=== PATIENT | male | born 1980 | race Caucasian/White ===

== ENCOUNTER 2020-10-15 23:33 | Emergency (ER) | payer OTHER ==
[~2020-10-15] VITALS: Ht 180.3 cm; Wt 117.9 kg
--- NOTE | 2020-10-15 23:42 | NUR ---
pt BIB [facility] 87 from home c/o back pain PL:01/06. No SOB or labored breathing. Afebrile. Denies any CP/pressure. No GI/ distress. pt states he was walking his dog and his back "locked up", pt dropped to the floor and simultaneously injured his ankles. A/O x4.
--- NOTE | 2020-10-16 | NUR ---
Dr. Smith at [facility], [facility] [place] in progress.
[2020-10-16] MEDS ORDERED: CARI350T PO (00:01)
[2020-10-16] MEDS ORDERED: VENL75TA4 PO (00:01)
[2020-10-16] MEDS ORDERED: HYDR-3972 PO (00:01)
[2020-10-16] MEDS ORDERED: KLONOPIN PO (00:01)
[2020-10-16] MEDS ORDERED: HYDROMORPHONE 1 MG/1 ML DISP.SYRIN IM ONE (00:15)
[2020-10-16] MEDS ORDERED: ONDANSETRON 4 MG/2 ML VIAL IM ONE (00:15)
[2020-10-16] MEDS ORDERED: ONDANSETRON 4 MG/2 ML VIAL ONE (00:21)
[2020-10-16] MEDS ORDERED: HYDROMORPHONE 2 MG/1 ML DISP.SYRIN ONE (00:21)
--- NOTE | 2020-10-16 01:32 | NUR ---
Patient discharged to home in stable condition. A/O x4, denies any fuller/discomfort at this time. Written and verbal after care instructions given. Patient verbalizes understanding of instructions. Stressed follow up or return to ER for worsening s/s. Steady gait, picked up by .
[2020-10-16 01:33] VITALS: BP 131/77
== END 2020-10-16 01:34 | disposition home or self-care (01) ==
LOC: ER 23:34
DX: M54.9 Dorsalgia, unspecified (principal); M25.571 Pain in right ankle and joints of right foot; W01.0XXA Fall on same level from slipping, tripping and stumbling without subsequent striking against object, initial encounter; Y93.K1 Activity, walking an animal; Y92.89 Other specified places as the place of occurrence of the external cause
CPT/HCPCS: 72100; 73610; 96372 ×2; 99284; J1170; J2405; A4663

== ENCOUNTER 2021-01-20 03:59 | Emergency (ER) | payer OTHER ==
[~2021-01-20] VITALS: Ht 180.3 cm; Wt 116.1 kg
[~2021-01-20 03:59] MED LIST: CARI350T PO; HYDR-3972 PO; KLONOPIN PO; VENL75TA4 PO
--- NOTE | 2021-01-20 04:25 | NUR ---
Dr. Dewey at bedside for MSE.
--- NOTE | 2021-01-20 04:45 | NUR ---
Pt out of ER for CT.
[2021-01-20 04:57] LABS: HEMATOCRIT 39.8 % (36.7-47.1); MEAN CORPUSCULAR HEMOGLOBIN 30.1 uug (23.8-33.4); PLATELET COUNT (AUTO) 203 K/uL (152-348)
--- NOTE | 2021-01-20 05:00 | NUR ---
Pt back to ER from CT.
[2021-01-20 05:02] LABS: CREATININE 1.1 mg/dL (0.6-1.3); POTASSIUM 4.6 mmol/L (3.5-5.1)
[2021-01-20] MEDS ORDERED: OXYC-128 PO (05:27)
[2021-01-20] MEDS ORDERED: HYDROMORPHONE 1 MG/1 ML DISP.SYRIN IM ONE (05:30)
[2021-01-20] MEDS ORDERED: KETOROLAC TROMETHAMINE 60 MG INJ IM ONE ×2 (05:30→05:37)
[2021-01-20] MEDS ORDERED: ONDANSETRON ODT 4 MG TAB.RAPDIS SL ONE (05:30)
[2021-01-20] MEDS ORDERED: HYDROMORPHONE 2 MG/1 ML DISP.SYRIN ONE (05:35)
[2021-01-20] MEDS ORDERED: ONDANSETRON ODT 4 MG TAB.RAPDIS ONE (05:36)
[2021-01-20] MEDS ORDERED: HYDROMORPHONE 1 MG/1 ML DISP.SYRIN ONE (05:36)
--- NOTE | 2021-01-20 05:38 | NUR ---
Patient discharged to home in stable condition. Written and verbal after care instructions given. Patient verbalizes understanding of instructions. Stressed follow up or return to ER for worsening s/s. Patient out of ER with steady gait, no acute signs of distress, VSS, all belongings taken, provided with copies of lab, CT, and EKG results, instructed not to drive, to be driven home by via private vehicle.
[2021-01-20 05:39] VITALS: BP 124/79
== END 2021-01-20 05:39 | disposition home or self-care (01) ==
LOC: ER 04:04
DX: M54.12 Radiculopathy, cervical region (principal); M54.50 Low back pain, unspecified; F17.210 Nicotine dependence, cigarettes, uncomplicated; I10 Essential (primary) hypertension; G89.29 Other chronic pain; F41.8 Other specified anxiety disorders; Z79.899 Other long term (current) drug therapy; E11.9 Type 2 diabetes mellitus without complications
CPT/HCPCS: 36415; 72125; 80048; 85025; 93005; 96372 ×2; 99285; J1170 ×2; J1885; A4663; Q0162

== ENCOUNTER 2021-08-16 01:07 | Emergency (ER) | payer SELFPAY ==
[~2021-08-16 01:07] MED LIST changes: +OXYC-128 PO
--- NOTE | 2021-08-16 01:30 | NUR ---
Patient was called to be triaged but was not present in the waiting room or outside of ER
--- NOTE | 2021-08-16 01:50 | NUR ---
Patient was called to be triaged but was not present in the waiting room or outside of ER
== END 2021-08-16 02:00 | disposition left against medical advice (07) ==
LOC: ER 01:09
DX: Z53.21 Procedure and treatment not carried out due to patient leaving prior to being seen by health care provider (principal)

== ENCOUNTER 2021-12-15 21:36 | Emergency (ER) | payer OTHER ==
[~2021-12-15] VITALS: Ht 177.8 cm; Wt 110.7 kg
[2021-12-15] MEDS ORDERED: IPRATROPIUM BROMIDE 0.5 MG/2.5 ML NEBU NEB ONE (22:00)
[2021-12-15] MEDS ORDERED: ALBUTEROL SULFATE 2.5 MG/3 ML NEBU NEB ONE (22:00)
[2021-12-15] MEDS ORDERED: IPRATROPIUM BROMIDE 0.5 MG/2.5 ML NEBU ONE (22:07)
[2021-12-15] MEDS ORDERED: ALBUTEROL SULFATE 2.5 MG/3 ML NEBU ONE (22:07)
[2021-12-15 22:13] LABS: HEMATOCRIT 41.8 % (36.7-47.1); MEAN CORPUSCULAR HEMOGLOBIN 30.1 uug (23.8-33.4); MEAN CORPUSCULAR VOLUME 87.8 fL (73.0-96.2); PLATELET COUNT (AUTO) 236 K/uL (152-348)
[2021-12-15 22:19] LABS: CREATININE 1.3 mg/dL (0.6-1.3); POTASSIUM 3.5 mmol/L (3.5-5.1)
--- NOTE | 2021-12-15 22:53 | NUR ---
After breathing Tx patient states "I feel better now."
[2021-12-15] MEDS ORDERED: PROC10TA29 PO (22:59)
[2021-12-15] MEDS ORDERED: HYDR473S4 PO (22:59)
[2021-12-15] MEDS ORDERED: DOXY-226 PO (22:59)
[2021-12-15] MEDS ORDERED: ALBU18HF2 INH (22:59)
--- NOTE | 2021-12-15 23:05 | NUR ---
IV removed. Catheter intact and site benign. Pressure and 4x4 gauze applied to site. No bleeding noted.
[2021-12-15 23:08] VITALS: BP 145/82
--- NOTE | 2021-12-15 23:08 | NUR ---
Patient discharged to home in stable condition. Written and verbal after care instructions given. Patient verbalizes understanding of instructions. Stressed follow up or return to ER for worsening s/s.
== END 2021-12-15 23:09 | disposition home or self-care (01) ==
LOC: ER 21:36
DX: J44.9 Chronic obstructive pulmonary disease, unspecified (principal); F17.210 Nicotine dependence, cigarettes, uncomplicated
CPT/HCPCS: 36415; 71045; 83735; 85025; A4663; J3590

== ENCOUNTER 2022-04-30 14:30 | Emergency (ER) | payer OTHER ==
[~2022-04-30] VITALS: Ht 177.8 cm; Wt 110.7 kg
[~2022-04-30 14:30] MED LIST changes: +ALBU18HF2 INH; +DOXY-226 PO; +HYDR473S4 PO; +PROC10TA29 PO
[2022-04-30] MEDS ORDERED: NAPR-1009 PO (16:11)
--- NOTE | 2022-04-30 16:45 | NUR ---
Wrist brace applied on right wrist.
[2022-04-30 16:54] VITALS: BP 135/82
== END 2022-04-30 16:54 | disposition home or self-care (01) ==
LOC: ER 14:30
DX: S63.501A Unspecified sprain of right wrist, initial encounter (principal); W01.0XXA Fall on same level from slipping, tripping and stumbling without subsequent striking against object, initial encounter; Y92.89 Other specified places as the place of occurrence of the external cause; F17.210 Nicotine dependence, cigarettes, uncomplicated; R03.0 Elevated blood-pressure reading, without diagnosis of hypertension
CPT/HCPCS: 73110; 73130; A4663

== ENCOUNTER 2022-09-08 10:47 | Emergency (ER) | payer OTHER ==
[~2022-09-08] VITALS: Ht 177.8 cm; Wt 104.3 kg
[~2022-09-08 10:47] MED LIST changes: +NAPR-1009 PO
--- NOTE | 2022-09-08 11:06 | NUR ---
Dr Pappas at the bedside for MSE.
[2022-09-08] MEDS ORDERED: HYDROCODONE/APAP 10-325 MG TABLET PO ONE (11:15)
[2022-09-08] MEDS ORDERED: KETOROLAC TROMETHAMINE 15 MG INJ IM ONE (11:15)
[2022-09-08] MEDS ORDERED: predniSONE 20 MG TABLET PO ONE (11:15)
[2022-09-08] MEDS ORDERED: HYDROCODONE/APAP 10-325 MG TABLET ONE (11:17)
[2022-09-08] MEDS ORDERED: predniSONE 10 MG TABLET ONE (11:17)
[2022-09-08] MEDS ORDERED: predniSONE 50 MG TABLET ONE (11:17)
[2022-09-08] MEDS ORDERED: KETOROLAC TROMETHAMINE 15 MG INJ ONE (11:17)
[2022-09-08] MEDS ORDERED: PRED20TA PO (11:32)
[2022-09-08] MEDS ORDERED: HYDR-3980 PO (11:32)
--- NOTE | 2022-09-08 11:51 | NUR ---
Patient discharged to home in stable condition. Written and verbal after care instructions given. Patient verbalizes understanding of instructions. Stressed follow up or return to ER for worsening s/s. Pt walked out of ER using own cane.
[2022-09-08 11:57] VITALS: BP 120/88
== END 2022-09-08 11:58 | disposition home or self-care (01) ==
LOC: ER 10:47
DX: M54.42 Lumbago with sciatica, left side (principal); G89.29 Other chronic pain; J45.909 Unspecified asthma, uncomplicated; E11.9 Type 2 diabetes mellitus without complications; F17.210 Nicotine dependence, cigarettes, uncomplicated; Z79.2 Long term (current) use of antibiotics; Z79.899 Other long term (current) drug therapy
CPT/HCPCS: 99283; 96372; J7512 ×2; J1885; A4663

== ENCOUNTER 2023-03-09 12:46 | Emergency (ER) | payer OTHER ==
[~2023-03-09] VITALS: Ht 177.8 cm; Wt 102.1 kg
[~2023-03-09 12:46] MED LIST changes: +HYDR-3980 PO; +PRED20TA PO
[2023-03-09] MEDS ORDERED: HYDROMORPHONE 2 MG/1 ML DISP.SYRIN ONE (13:25)
[2023-03-09] MEDS ORDERED: ONDANSETRON 4 MG/2 ML VIAL ONE (13:25)
[2023-03-09] MEDS ORDERED: NITROGLYCERIN OINT 1 GM PACKET TP ONE ×2 (13:26→13:30)
[2023-03-09] MEDS ORDERED: ONDANSETRON 4 MG/2 ML VIAL IV ONE (13:30)
[2023-03-09] MEDS ORDERED: HYDROMORPHONE 1 MG/1 ML DISP.SYRIN IV ONE (13:30)
[2023-03-09 13:47] LABS: BASOPHILS # (AUTO) 0.1 K/UL (0.0-0.2); BASOPHILS % (AUTO) 0.9 % (0.0-2.0); EOSINOPHILS # (AUTO) 0.3 K/uL (0.0-0.7); EOSINOPHILS % (AUTO) 5.5 % (0.0-7.0); HEMOGLOBIN 13.4 g/dL (12.5-16.3); LYMPHOCYTES # (AUTO) 1.9 K/uL (0.8-4.8); LYMPHOCYTES % (AUTO) 30.5 % (20.5-51.5); MEAN CORPUSCULAR HEMOGLOBIN 29.6 uug (23.8-33.4); MEAN CORPUSCULAR HGB CONC 33 g/dL (32.5-36.3); MEAN CORPUSCULAR VOLUME 88.8 fL (73.0-96.2); MONOCYTES # (AUTO) 0.3 K/uL (0.1-1.30); MONOCYTES % (AUTO) 5.2 % (0.0-11.0); NEUTROPHILS # (AUTO) 3.6 K/uL (1.8-8.9); NEUTROPHILS % (AUTO) 57.9 % (38.5-71.5); PLATELET COUNT (AUTO) 181 K/uL (152-348); RED BLOOD CELL COUNT(AUTO) 4.51 MIL/uL (4.06-5.63); RED CELL DISTRIBUTION WIDTH 14.3 % (12.1-16.2); WHITE BLOOD COUNT (AUTO) 6.1 K/uL (3.6-10.2)
[2023-03-09 14:04] LABS: CALCIUM 9.3 mg/dL (8.5-10.1); CARBON DIOXIDE 26 mmol/L (21-32); CHLORIDE 104 mmol/L (98-107); CREATININE 1.1 mg/dL (0.6-1.3); GLUCOSE 179 mg/dL (74-106); POTASSIUM 3.5 mmol/L (3.5-5.1); SODIUM SERUM 141 mmol/L (136-145); UREA NITROGEN, BLOOD 8 mg/dL (7-18)
[2023-03-09 14:18] LABS: ALANINE AMINOTRANSFERASE 34 U/L (16-63); ALBUMIN 3.7 g/dL (3.4-5.0); ALKALINE PHOSPHATASE 96 U/L (50-136); ASPARTATE AMINOTRANSFERASE 17 U/L (15-37); BILIRUBIN,DIRECT 0.1 mg/dL (0.0-0.2); BILIRUBIN,TOTAL 0.2 mg/dL (0.2-1.0); NT-PRO BNP 22 pg/mL (0-125); TOTAL PROTEIN, SERUM 6.9 g/dL (6.4-8.2)
[2023-03-09] MEDS ORDERED: FLAS1KIT2 TP (15:49)
[2023-03-09] MEDS ORDERED: HYDR-3980 PO (15:49)
[2023-03-09] MEDS ORDERED: FLAS1EAC2 TP (15:49)
[2023-03-09 16:27] VITALS: BP 136/75; TEMP 98.2; O2SAT 98
== END 2023-03-09 16:29 | disposition home or self-care (01) ==
LOC: ER 12:46
DX: R09.1 Pleurisy (principal); B97.89 Other viral agents as the cause of diseases classified elsewhere; E11.9 Type 2 diabetes mellitus without complications; I10 Essential (primary) hypertension; J45.909 Unspecified asthma, uncomplicated; F17.210 Nicotine dependence, cigarettes, uncomplicated; Z71.6 Tobacco abuse counseling; Z79.2 Long term (current) use of antibiotics; Z79.899 Other long term (current) drug therapy
CPT/HCPCS: 36415; 71045; 83735; 84484; 85025; 85730; 93005; A4606; A4663; J1170; J2405

== ENCOUNTER 2023-05-25 11:29 | Emergency (ER) | payer OTHER ==
[~2023-05-25] VITALS: Ht 177.8 cm; Wt 102.1 kg
[~2023-05-25 11:29] MED LIST changes: +FLAS1EAC2 TP; +FLAS1KIT2 TP
[2023-05-25] MEDS ORDERED: METOCLOPRAMIDE HCL 10 MG/2 ML VIAL ONE (14:11)
[2023-05-25] MEDS ORDERED: HYDROMORPHONE 1 MG/1 ML DISP.SYRIN ONE (14:11)
[2023-05-25 14:17] LABS: *BILIRUBIN,URIN NEGATIVE (NEGATIVE); *BLOOD, URINE NEGATIVE (NEGATIVE); *CLARITY,URINE CLEAR (CLEAR); *COLOR,URINE YELLOW (YELLOW); *KETONES,URINE NEGATIVE (NEGATIVE); *PROTEIN,URINE NEGATIVE (NEGATIVE); *UROBILINOGEN,URINE 0.2 E.U./dl (NORMAL); LEUKOCYTE ESTERASE ,URINE NEGATIVE (NEGATIVE); NITRITE, URINE NEGATIVE (NEGATIVE); PH,URINE 5.5 (5.0-8.0); UGLUCOSE NEGATIVE (NEGATIVE)
[2023-05-25 14:22] LABS: BASOPHILS % (AUTO) 0.7 % (0.0-2.0); EOSINOPHILS # (AUTO) 0.1 K/uL (0.0-0.7); EOSINOPHILS % (AUTO) 2.3 % (0.0-7.0); HEMATOCRIT 43.8 % (36.7-47.1); HEMOGLOBIN 14.8 g/dL (12.5-16.3); LYMPHOCYTES # (AUTO) 0.8 K/uL (0.8-4.8); LYMPHOCYTES % (AUTO) 18.3 % (20.5-51.5); MEAN CORPUSCULAR HEMOGLOBIN 29.4 uug (23.8-33.4); MEAN CORPUSCULAR HGB CONC 34 g/dL (32.5-36.3); MEAN CORPUSCULAR VOLUME 87.3 fL (73.0-96.2); MONOCYTES # (AUTO) 0.4 K/uL (0.1-1.30); MONOCYTES % (AUTO) 8.4 % (0.0-11.0); NEUTROPHILS # (AUTO) 3.1 K/uL (1.8-8.9); NEUTROPHILS % (AUTO) 70.3 % (38.5-71.5); PLATELET COUNT (AUTO) 196 K/uL (152-348); RED BLOOD CELL COUNT(AUTO) 5.01 MIL/uL (4.06-5.63); RED CELL DISTRIBUTION WIDTH 14.2 % (12.1-16.2); WHITE BLOOD COUNT (AUTO) 4.5 K/uL (3.6-10.2)
[2023-05-25] MEDS: METOCLOPRAMIDE HCL 10 MG/2 ML VIAL IV ONE (14:25)
[2023-05-25] MEDS: HYDROMORPHONE 1 MG/1 ML DISP.SYRIN IV ONE (14:25)
[2023-05-25] MEDS: IV NORMAL SALINE 1000 ML BAG IV ONE (14:25)
[2023-05-25 14:31] LABS: DIFFERENTIAL COMMENT 1
[2023-05-25 14:49] LABS: ALANINE AMINOTRANSFERASE 35 U/L (16-63); ALBUMIN 3.8 g/dL (3.4-5.0); ALKALINE PHOSPHATASE 89 U/L (50-136); ASPARTATE AMINOTRANSFERASE 17 U/L (15-37); BILIRUBIN,DIRECT 0.1 mg/dL (0.0-0.2); BILIRUBIN,TOTAL 0.2 mg/dL (0.2-1.0); CALCIUM 8.7 mg/dL (8.5-10.1); CARBON DIOXIDE 25 mmol/L (21-32); CHLORIDE 103 mmol/L (98-107); CREATININE 0.9 mg/dL (0.6-1.3); GLUCOSE 102 mg/dL (74-106); LIPASE 15 U/L (16-77); POTASSIUM 3.9 mmol/L (3.5-5.1); SODIUM SERUM 136 mmol/L (136-145); TOTAL PROTEIN, SERUM 7.5 g/dL (6.4-8.2); UREA NITROGEN, BLOOD 10 mg/dL (7-18)
[2023-05-25 15:04] LABS: ETHANOL < 3 MG/DL (0-10)
[2023-05-25] MEDS ORDERED: METO-295 PO (16:43)
[2023-05-25] MEDS ORDERED: IBUP-1957 PO (16:43)
[2023-05-25 16:49] VITALS: BP 121/67; O2SAT 99
== END 2023-05-25 16:50 | disposition home or self-care (01) ==
LOC: ER 11:29
DX: R11.2 Nausea with vomiting, unspecified (principal); J45.909 Unspecified asthma, uncomplicated; F41.9 Anxiety disorder, unspecified; F32.A Depression, unspecified; E11.9 Type 2 diabetes mellitus without complications; F17.200 Nicotine dependence, unspecified, uncomplicated; Z98.890 Other specified postprocedural states; Z79.899 Other long term (current) drug therapy
CPT/HCPCS: 80076; 80048; 81003; 83690; 85025; 85730; 87040 ×2; 84484; 36415; 93005; 71045; 74176; 99285; 96361; 96374; 96375; 83605; 80320; J2765; J1170; J7040; A4606; A4663; G0480

== ENCOUNTER 2023-09-27 06:42 | Emergency (ER) | payer OTHER ==
[~2023-09-27] VITALS: Ht 177.8 cm; Wt 102.1 kg
[~2023-09-27 06:42] MED LIST changes: +D-ME473S47 PO; +FLUT1BLS6 IH; +IBUP-1957 PO; +LEVO750T46 PO; +METH4TAB3 PO; +METO-295 PO
[2023-09-27] MEDS ORDERED: HYDROMORPHONE 1 MG/1 ML DISP.SYRIN ONE (07:34)
[2023-09-27] MEDS ORDERED: HYDROMORPHONE 2 MG/1 ML DISP.SYRIN ONE (07:34)
[2023-09-27 07:44] VITALS: BP 130/70; TEMP 97; O2SAT 99
[2023-09-27] MEDS: HYDROMORPHONE 1 MG/1 ML DISP.SYRIN IM ONE (07:44)
== END 2023-09-27 07:45 | disposition home or self-care (01) ==
LOC: ER 06:45
DX: M54.50 Low back pain, unspecified (principal); E11.9 Type 2 diabetes mellitus without complications; I10 Essential (primary) hypertension; J45.909 Unspecified asthma, uncomplicated; F17.210 Nicotine dependence, cigarettes, uncomplicated; Z79.899 Other long term (current) drug therapy
CPT/HCPCS: 99283; 96372; J1170 ×2; A4606; A4663

== ENCOUNTER 2023-12-11 09:07 | Emergency (ER) | payer OTHER ==
[~2023-12-11] VITALS: Ht 177.8 cm; Wt 102.1 kg
[2023-12-11] MEDS ORDERED: METOCLOPRAMIDE HCL 10 MG/2 ML VIAL ONE (09:44)
[2023-12-11] MEDS ORDERED: KETOROLAC TROMETHAMINE 15 MG INJ ONE (09:44)
[2023-12-11] MEDS: METOCLOPRAMIDE HCL 10 MG/2 ML VIAL IV ONE (09:55)
[2023-12-11] MEDS: KETOROLAC TROMETHAMINE 15 MG INJ IVP ONE (09:55)
[2023-12-11] MEDS: IV NORMAL SALINE 1000 ML BAG IV ONE (09:55)
[2023-12-11 10:05] LABS: BASOPHILS % (AUTO) 0.8 % (0.0-2.0); EOSINOPHILS # (AUTO) 0.2 K/uL (0.0-0.7); EOSINOPHILS % (AUTO) 3.5 % (0.0-7.0); HEMATOCRIT 39.1 % (36.7-47.1); HEMOGLOBIN 13.1 g/dL (12.5-16.3); LYMPHOCYTES # (AUTO) 2.1 K/uL (0.8-4.8); LYMPHOCYTES % (AUTO) 37.6 % (20.5-51.5); MEAN CORPUSCULAR HEMOGLOBIN 30.1 uug (23.8-33.4); MEAN CORPUSCULAR HGB CONC 34 g/dL (32.5-36.3); MEAN CORPUSCULAR VOLUME 89.7 fL (73.0-96.2); MONOCYTES # (AUTO) 0.4 K/uL (0.1-1.30); MONOCYTES % (AUTO) 6.6 % (0.0-11.0); NEUTROPHILS # (AUTO) 2.8 K/uL (1.8-8.9); NEUTROPHILS % (AUTO) 51.5 % (38.5-71.5); PLATELET COUNT (AUTO) 234 K/uL (152-348); RED BLOOD CELL COUNT(AUTO) 4.36 MIL/uL (4.06-5.63); RED CELL DISTRIBUTION WIDTH 14.1 % (12.1-16.2); WHITE BLOOD COUNT (AUTO) 5.5 K/uL (3.6-10.2)
[2023-12-11 10:32] LABS: CALCIUM 8.9 mg/dL (8.5-10.1); CARBON DIOXIDE 26 mmol/L (21-32); CHLORIDE 106 mmol/L (98-107); CREATININE 0.9 mg/dL (0.6-1.3); GLUCOSE 107 mg/dL (74-106); POTASSIUM 3.8 mmol/L (3.5-5.1); SODIUM SERUM 141 mmol/L (136-145); UREA NITROGEN, BLOOD 8 mg/dL (7-18)
[2023-12-11 10:40] LABS: ALANINE AMINOTRANSFERASE 40 U/L (16-63); ALBUMIN 3.7 g/dL (3.4-5.0); ALKALINE PHOSPHATASE 71 U/L (50-136); ASPARTATE AMINOTRANSFERASE 13 U/L (15-37); BILIRUBIN,DIRECT 0.1 mg/dL (0.0-0.2); BILIRUBIN,TOTAL 0.3 mg/dL (0.2-1.0); LIPASE 16 U/L (16-77); TOTAL PROTEIN, SERUM 6.7 g/dL (6.4-8.2)
[2023-12-11 10:49] LABS: DIFFERENTIAL COMMENT 1
[2023-12-11 12:15] LABS: *BILIRUBIN,URIN NEGATIVE (NEGATIVE); *BLOOD, URINE NEGATIVE (NEGATIVE); *CLARITY,URINE CLEAR (CLEAR); *COLOR,URINE YELLOW (YELLOW); *KETONES,URINE NEGATIVE (NEGATIVE); *PROTEIN,URINE NEGATIVE (NEGATIVE); *UROBILINOGEN,URINE 0.2 E.U./dl (NORMAL); LEUKOCYTE ESTERASE ,URINE NEGATIVE (NEGATIVE); NITRITE, URINE NEGATIVE (NEGATIVE); PH,URINE 5.5 (5.0-8.0); UGLUCOSE NEGATIVE (NEGATIVE)
[2023-12-11] MEDS ORDERED: AMOX-430 PO (12:19)
[2023-12-11 13:00] VITALS: BP 134/81; TEMP 98.2; O2SAT 97
== END 2023-12-11 13:01 | disposition home or self-care (01) ==
LOC: ER 09:07
DX: K52.89 Other specified noninfective gastroenteritis and colitis (principal); J45.909 Unspecified asthma, uncomplicated; E11.9 Type 2 diabetes mellitus without complications; F32.A Depression, unspecified; F17.200 Nicotine dependence, unspecified, uncomplicated; Z98.890 Other specified postprocedural states; Z79.1 Long term (current) use of non-steroidal anti-inflammatories (NSAID); Z79.899 Other long term (current) drug therapy
CPT/HCPCS: 99285; 74176; 96374; 71045; 96361; 96375; 80076; 80048; 81003; 83690; 85025; 85730; 84484; 36415; 93005; J1885; J2765; J7040 ×2; A4606; A4663

== ENCOUNTER 2024-02-08 20:46 | Emergency (ER) | payer OTHER ==
[~2024-02-08] VITALS: Ht 177.8 cm; Wt 102.1 kg
[~2024-02-08 20:46] MED LIST changes: +AMOX-430 PO
[2024-02-08] MEDS ORDERED: ALBUTEROL SULFATE 2.5 MG/3 ML NEBU ONE (21:51)
[2024-02-08] MEDS ORDERED: IPRATROPIUM BROMIDE 0.5 MG/2.5 ML NEBU ONE (21:51)
[2024-02-08] MEDS ORDERED: predniSONE 50 MG TABLET ONE (21:54)
[2024-02-08] MEDS ORDERED: ACETAMINOPHEN 500 MG TABLET ONE (21:54)
[2024-02-08] MEDS ORDERED: AZITHROMYCIN 250 MG TABLET ONE (21:54)
[2024-02-08 21:57] LABS: BASOPHILS % (AUTO) 0.7 % (0.0-2.0); EOSINOPHILS # (AUTO) 0.3 K/uL (0.0-0.7); EOSINOPHILS % (AUTO) 4.9 % (0.0-7.0); HEMOGLOBIN 13.1 g/dL (12.5-16.3); LYMPHOCYTES # (AUTO) 2.4 K/uL (0.8-4.8); LYMPHOCYTES % (AUTO) 38.4 % (20.5-51.5); MEAN CORPUSCULAR HGB CONC 34 g/dL (32.5-36.3); MEAN CORPUSCULAR VOLUME 89.1 fL (73.0-96.2); MONOCYTES # (AUTO) 0.6 K/uL (0.1-1.30); MONOCYTES % (AUTO) 8.9 % (0.0-11.0); NEUTROPHILS % (AUTO) 47.1 % (38.5-71.5); PLATELET COUNT (AUTO) 257 K/uL (152-348); RED BLOOD CELL COUNT(AUTO) 4.38 MIL/uL (4.06-5.63); RED CELL DISTRIBUTION WIDTH 13.2 % (12.1-16.2); WHITE BLOOD COUNT (AUTO) 6.4 K/uL (3.6-10.2)
[2024-02-08] MEDS: ACETAMINOPHEN 500 MG TABLET PO ONE (21:57)
[2024-02-08] MEDS: predniSONE 50 MG TABLET PO ONE (21:57)
[2024-02-08] MEDS: AZITHROMYCIN 250 MG TABLET PO ONE (21:57)
[2024-02-08] MEDS: ALBUTEROL SULFATE 2.5 MG/ 0.5 ML NEBU NEB ONE (22:09)
[2024-02-08] MEDS: IPRATROPIUM BROMIDE 0.5 MG/2.5 ML NEBU NEB ONE (22:09)
[2024-02-08 22:10] VITALS: O2SAT 96
[2024-02-08 22:11] VITALS: O2SAT 96
[2024-02-08 22:18] LABS: CALCIUM 9.2 mg/dL (8.5-10.1); CARBON DIOXIDE 27 mmol/L (21-32); CHLORIDE 105 mmol/L (98-107); GLUCOSE 133 mg/dL (74-106); SODIUM SERUM 143 mmol/L (136-145); UREA NITROGEN, BLOOD 14 mg/dL (7-18)
[2024-02-08 22:24] LABS: ALANINE AMINOTRANSFERASE 46 U/L (16-63); ALBUMIN 3.7 g/dL (3.4-5.0); ALKALINE PHOSPHATASE 97 U/L (50-136); ASPARTATE AMINOTRANSFERASE 18 U/L (15-37); BILIRUBIN,DIRECT 0.1 mg/dL (0.0-0.2); BILIRUBIN,TOTAL 0.2 mg/dL (0.2-1.0); NT-PRO BNP 18 pg/mL (0-125); TOTAL PROTEIN, SERUM 7.3 g/dL (6.4-8.2)
[2024-02-08 22:43] VITALS: O2SAT 99
[2024-02-08] MEDS ORDERED: AZIT250T13 PO (22:51)
[2024-02-08] MEDS ORDERED: METH4TAB21 PO (22:51)
[2024-02-08] MEDS ORDERED: FLUT16SP16 BNOSTRILS (22:51)
[2024-02-08 22:57] VITALS: BP 155/90; TEMP 98.5; O2SAT 99
== END 2024-02-08 22:58 | disposition home or self-care (01) ==
LOC: ER 20:46
DX: J44.1 Chronic obstructive pulmonary disease with (acute) exacerbation (principal); E11.9 Type 2 diabetes mellitus without complications; R06.02 Shortness of breath; F41.9 Anxiety disorder, unspecified; F32.A Depression, unspecified; F17.210 Nicotine dependence, cigarettes, uncomplicated; B97.89 Other viral agents as the cause of diseases classified elsewhere; R03.0 Elevated blood-pressure reading, without diagnosis of hypertension; Z79.52 Long term (current) use of systemic steroids; Z20.822 Contact with and (suspected) exposure to COVID-19; Z79.899 Other long term (current) drug therapy
CPT/HCPCS: 99285; 71045; 87426; 87804 ×2; 80076; 80048; 83880; 85025; 84484; 36415; 94640; 93005; 83605; J7512; A4606; A4663; A9150; J3590; Q0144

== ENCOUNTER 2024-04-23 13:24 | Emergency (ER) | payer OTHER ==
[~2024-04-23] VITALS: Ht 177.8 cm; Wt 102.1 kg
[~2024-04-23 13:24] MED LIST changes: +AZIT250T13 PO; +FLUT16SP16 BNOSTRILS; +METH4TAB21 PO
[2024-04-23] MEDS: HYDROCODONE/APAP 10-325 MG TABLET PO ONE (13:56)
[2024-04-23] MEDS ORDERED: HYDROCODONE/APAP 10-325 MG TABLET ONE (13:57)
[2024-04-23] MEDS ORDERED: HYDR-3980 PO (16:00)
[2024-04-23 16:40] VITALS: BP 156/99; O2SAT 97
== END 2024-04-23 16:41 | disposition home or self-care (01) ==
LOC: ER 13:24
DX: S24.159A Other incomplete lesion at unspecified level of thoracic spinal cord, initial encounter (principal); S34.109A Unspecified injury to unspecified level of lumbar spinal cord, initial encounter; E11.9 Type 2 diabetes mellitus without complications; F17.210 Nicotine dependence, cigarettes, uncomplicated; F32.A Depression, unspecified; F41.9 Anxiety disorder, unspecified; J45.909 Unspecified asthma, uncomplicated; Z79.52 Long term (current) use of systemic steroids; Z79.899 Other long term (current) drug therapy; W10.9XXA Fall (on) (from) unspecified stairs and steps, initial encounter; Y93.89 Activity, other specified; Y92.89 Other specified places as the place of occurrence of the external cause; Y99.8 Other external cause status
CPT/HCPCS: 72072; 72100; A4606; A4663

== ENCOUNTER 2024-05-29 09:46 | Emergency (ER) | payer OTHER ==
[~2024-05-29] VITALS: Ht 172.7 cm; Wt 88.9 kg
[2024-05-29] MEDS ORDERED: MORPHINE SULFATE 2 MG/1 ML DISP.SYRIN ONE (10:20)
[2024-05-29] MEDS ORDERED: MORPHINE SULFATE 4 MG/1 ML DISP.SYRIN ONE ×2 (10:20→10:21)
[2024-05-29] MEDS ORDERED: DEXAMETHASONE SOD PHOSPHATE 10 MG INJ ONE (10:21)
[2024-05-29] MEDS ORDERED: ONDANSETRON ODT 4 MG TAB.RAPDIS ONE (10:21)
[2024-05-29] MEDS: MORPHINE SULFATE 10 MG/1 ML DISP.SYRIN IM ONE (10:28)
[2024-05-29] MEDS: DEXAMETHASONE SOD PHOSPHATE 4 MG INJ IV ONE (10:28)
[2024-05-29] MEDS: ONDANSETRON ODT 4 MG TAB.RAPDIS SL ONE (10:28)
[2024-05-29 10:33] VITALS: BP 150/84; O2SAT 98
== END 2024-05-29 10:35 | disposition home or self-care (01) ==
LOC: ER 09:46
DX: G89.29 Other chronic pain (principal); M54.50 Low back pain, unspecified; E11.9 Type 2 diabetes mellitus without complications; F17.210 Nicotine dependence, cigarettes, uncomplicated; F32.A Depression, unspecified; F41.9 Anxiety disorder, unspecified; J45.909 Unspecified asthma, uncomplicated; Z79.52 Long term (current) use of systemic steroids; Z79.899 Other long term (current) drug therapy; Z87.39 Personal history of other diseases of the musculoskeletal system and connective tissue
CPT/HCPCS: 99284; 96374; 96372; J1100; J2270 ×4; A4606; A4663; Q0162

== ENCOUNTER → 2024-06-29 | Emergency (ER) | payer OTHER ==
[~2024-06-29] VITALS: Ht 182.9 cm; Wt 109.3 kg
[~2024-06-29] MED LIST changes: +BREX0.5T PO; +CLON2TAB11 PO; +CLONAZEPAM 1 MG TABLET ONE; +HYDR-4354 PO; +HYDROMORPHONE 1 MG/1 ML DISP.SYRIN IV ONE; +HYDROMORPHONE 1 MG/1 ML DISP.SYRIN ONE; +HYDROMORPHONE 2 MG/1 ML DISP.SYRIN ONE; +ONDANSETRON 4 MG/2 ML VIAL IV ONE; +ONDANSETRON HCL 4 MG TABLET ONE; +PROP20TA19 PO; +diphenhydrAMINE 50 MG CAPSULE ONE; +diphenhydrAMINE 50 MG/1 ML VIAL ONE
[2024-06-29 07:53] VITALS: O2SAT 99
[2024-06-29 11:36] LABS: BASOPHILS # (AUTO) 0.1 K/UL (0.0-0.2); BASOPHILS % (AUTO) 0.8 % (0.0-2.0); EOSINOPHILS # (AUTO) 0.3 K/uL (0.0-0.7); EOSINOPHILS % (AUTO) 3.4 % (0.0-7.0); HEMATOCRIT 42.4 % (36.7-47.1); HEMOGLOBIN 14.3 g/dL (12.5-16.3); LYMPHOCYTES # (AUTO) 2.4 K/uL (0.8-4.8); LYMPHOCYTES % (AUTO) 32.3 % (20.5-51.5); MEAN CORPUSCULAR HEMOGLOBIN 30.2 uug (23.8-33.4); MEAN CORPUSCULAR HGB CONC 34 g/dL (32.5-36.3); MEAN CORPUSCULAR VOLUME 89.6 fL (73.0-96.2); MONOCYTES # (AUTO) 0.6 K/uL (0.1-1.30); NEUTROPHILS # (AUTO) 4.1 K/uL (1.8-8.9); NEUTROPHILS % (AUTO) 55.5 % (38.5-71.5); PLATELET COUNT (AUTO) 257 K/uL (152-348); RED BLOOD CELL COUNT(AUTO) 4.73 MIL/uL (4.06-5.63); RED CELL DISTRIBUTION WIDTH 14.3 % (12.1-16.2); WHITE BLOOD COUNT (AUTO) 7.5 K/uL (3.6-10.2)
[2024-06-29 11:37] LABS: DIFFERENTIAL COMMENT 1
[2024-06-29 11:48] LABS: CALCIUM 9.7 mg/dL (8.5-10.1); POTASSIUM 4.2 mmol/L (3.5-5.1)
[2024-06-29 12:06] LABS: ALBUMIN 4.4 g/dL (3.4-5.0); BILIRUBIN,DIRECT 0.1 mg/dL (0.0-0.2); BILIRUBIN,TOTAL 0.4 mg/dL (0.2-1.0)
[2024-06-29] MEDS: HYDROMORPHONE 1 MG/1 ML DISP.SYRIN IM ONE ×3 (12:06→22:00)
[2024-06-29] MEDS: diphenhydrAMINE 50 MG/1 ML VIAL IM ONE ×2 (12:06→14:39)
[2024-06-29] MEDS: NICOTINE 21 MG/24HR PATCH TD SCH (17:46)
[2024-06-29] MEDS: CLONAZEPAM 0.5 MG TABLET PO ONE (18:12)
[2024-06-29] MEDS: diphenhydrAMINE 50 MG CAPSULE PO ONE (22:00)
[2024-06-29] MEDS: ONDANSETRON ODT 4 MG TAB.RAPDIS SL ONE (22:00)
== END | disposition home or self-care (01) ==
LOC: ER 07:46
DX: M54.50 Low back pain, unspecified (principal); E11.9 Type 2 diabetes mellitus without complications; F17.210 Nicotine dependence, cigarettes, uncomplicated; F32.A Depression, unspecified; F41.9 Anxiety disorder, unspecified; Z79.52 Long term (current) use of systemic steroids; Z79.899 Other long term (current) drug therapy; Z87.09 Personal history of other diseases of the respiratory system
CPT/HCPCS: 99285; 72128; 80076; 80048; 82962; 85025; 85651; 85730; 36415; 72131; 93005; 96372; J1171 ×3; Q0163; J1200 ×2; A4606; A4663; Q0162

== ENCOUNTER 2025-01-25 23:40 | Emergency (ER) | payer OTHER ==
[~2025-01-25] VITALS: Ht 177.8 cm; Wt 102.1 kg
[~2025-01-25 23:40] MED LIST changes: -CLONAZEPAM 1 MG TABLET ONE; -HYDROMORPHONE 1 MG/1 ML DISP.SYRIN IV ONE; -HYDROMORPHONE 1 MG/1 ML DISP.SYRIN ONE; -HYDROMORPHONE 2 MG/1 ML DISP.SYRIN ONE; -KLONOPIN PO; -ONDANSETRON 4 MG/2 ML VIAL IV ONE; -ONDANSETRON HCL 4 MG TABLET ONE; -diphenhydrAMINE 50 MG CAPSULE ONE; -diphenhydrAMINE 50 MG/1 ML VIAL ONE
[2025-01-26] MEDS ORDERED: IPRATROPIUM BROMIDE 0.5 MG/2.5 ML NEBU ONE (00:28)
[2025-01-26] MEDS ORDERED: ALBUTEROL SULFATE 2.5 MG/3 ML NEBU ONE (00:29)
[2025-01-26 00:30] VITALS: O2SAT 95
[2025-01-26] MEDS: ALBUTEROL SULFATE 2.5 MG/3 ML NEBU NEB ONE (00:38)
[2025-01-26] MEDS: IPRATROPIUM BROMIDE 0.5 MG/2.5 ML NEBU NEB ONE (00:38)
[2025-01-26 00:44] LABS: PLATELET COUNT (AUTO) 269 K/uL (152-348); RED BLOOD CELL COUNT(AUTO) 4.63 MIL/uL (4.06-5.63); RED CELL DISTRIBUTION WIDTH 13.4 % (12.1-16.2); WHITE BLOOD COUNT (AUTO) 9.8 K/uL (3.6-10.2)
[2025-01-26] MEDS ORDERED: ONDANSETRON 4 MG/2 ML VIAL ONE (00:49)
[2025-01-26] MEDS ORDERED: MORPHINE SULFATE 4 MG/1 ML DISP.SYRIN ONE (00:50)
[2025-01-26 00:56] LABS: ASPARTATE AMINOTRANSFERASE 32 U/L (15-37); CREATININE 1.2 mg/dL (0.6-1.3); SODIUM SERUM 139 mmol/L (136-145); TOTAL PROTEIN, SERUM 7.8 g/dL (6.4-8.2); UREA NITROGEN, BLOOD 10 mg/dL (7-18)
[2025-01-26] MEDS: MORPHINE SULFATE 2 MG/1 ML DISP.SYRIN IV ONE (01:00)
[2025-01-26] MEDS: ONDANSETRON 4 MG/2 ML VIAL IV ONE (01:00)
[2025-01-26 01:10] LABS: *BILIRUBIN,URIN NEGATIVE (NEGATIVE); *BLOOD, URINE NEGATIVE (NEGATIVE); *CLARITY,URINE CLEAR (CLEAR); *COLOR,URINE YELLOW (YELLOW); *KETONES,URINE NEGATIVE (NEGATIVE); *PROTEIN,URINE NEGATIVE (NEGATIVE); *UROBILINOGEN,URINE 0.2 E.U./dl (NORMAL); LEUKOCYTE ESTERASE ,URINE NEGATIVE (NEGATIVE); NITRITE, URINE NEGATIVE (NEGATIVE); UGLUCOSE NEGATIVE (NEGATIVE)
[2025-01-26 01:23] LABS: *AMPHETAMINE, URINE NEGATIVE (NEGATIVE); *BARBITURATE, URINE NEGATIVE (NEGATIVE); *BENZODIAZEPINE, URINE POSITIVE (NEGATIVE); *CANNABINOID, URINE POSITIVE (NEGATIVE); *COCCAINE, URINE NEGATIVE (NEGATIVE); *OPIATE, URINE POSITIVE (NEGATIVE); *PHENCYCLIDINE SCREEN,URINE NEGATIVE (NEGATIVE); FENTANYL, URINE NEGATIVE (NEGATIVE)
[2025-01-26 01:30] VITALS: BP 128/71; O2SAT 99
[2025-01-26] MEDS ORDERED: ALBU18HF2 INH (01:56)
[2025-01-26] MEDS ORDERED: PRED50TA PO (01:56)
[2025-01-26 02:39] VITALS: BP 125/69; O2SAT 98
== END 2025-01-26 02:12 | disposition home or self-care (01) ==
LOC: ER 23:52
DX: J44.89 Other specified chronic obstructive pulmonary disease (principal); G89.29 Other chronic pain; F41.9 Anxiety disorder, unspecified; F17.210 Nicotine dependence, cigarettes, uncomplicated; R06.02 Shortness of breath; E11.9 Type 2 diabetes mellitus without complications; F32.A Depression, unspecified; Z79.52 Long term (current) use of systemic steroids; Z79.84 Long term (current) use of oral hypoglycemic drugs; Z79.899 Other long term (current) drug therapy
CPT/HCPCS: 99285; 96374; 96375; 71045; 80076; 80048; 83880; 85025; 84484; 36415; 94644; 93005; 80307; 81003; J2919; J2405; J2270; A4606; A4663; J3590